=== PATIENT | female | born 1945 | race Caucasian/White ===

== ENCOUNTER → 2016-10-26 | Outpatient (CLI) | payer OTHER ==
[~2016-10-26] VITALS: Ht 172.7 cm; Wt 86.4 kg
[~2016-10-26] MED LIST: ALIGN4 MG PO; CALCIUM 500 +1 EAC5 OR; CENTRUM TABLET1 TAB PO; CYMBALTA60 MG PO; DESYREL150 MG PO; DESYREL50 MG PO; DIOVAN320 MG PO; EFFEXOR37.5 MG OR; EXCEDRIN CAPLE1 EACH PO; EXFORGE PO; FISHOIL PO; HYDROCHLOROTH12.5 MG PO; HYDROCODON-ACE1 EAC5 PO; HYSINGLA ER30 MG PO; LIPITOR10 MG PO; LYRICA 50 MG50 MG PO; NEURONTIN 300300 M1 PO; OMEPRAZOLE20 M1 PO; OPANA ER7.5 M1 PO; PROLIA60 MG/1 ML SQ; ULTRAM ER200 MG OR; VITAMIN D 5050000 I1 OR; VITAMIN D1000 UNI1 PO; ZEGERID 20 MG1 EACH OR
--- NOTE | ~2016-10-26 | HPC ---
[facility] [place] [address] PAIN MANAGEMENT CONSULTATION Name: MAHAMED PALOMARES Room #: REG [facility] Elliott.#: [id number] Admission: 10/26/16 Attend Phys: Luis Mckeon MD Discharge: Date of : 49 Report #: [id number] THIS REPORT FOR: //name// CC: Araceli Cash MD DATE OF SERVICE: 10/26/2016 DATE OF REGISTRATION: 10/26/2016. Followup visit for chronic low back pain, post-laminectomy syndrome, and severe osteoarthritis of the left hip following hip fracture. The patient returns to the pain clinic today to discuss her plans to have her left hip replaced over the next 2 weeks. She has developed severe osteoarthritis in the hip that was injured by fall. She had hip pinning for fracture a few years back and has really had progressive pain in the hips to the point now where pain in the hip outweighs by far the pain of her sciatica. I provided her with medication under terms of an opioid agreement. She is grateful for the relief that she gets from the hydrocodone. We discussed at length today the use of opioids in the perioperative period. She will try and reduce some ____ over the next week or two, which might provide her with some reduced tolerance and improved response to medications immediately postoperative. She may need a higher dose of pain medication than normal in the immediate perioperative period as well as in the first week or so, but then I think we ought to be able to taper it back down. PHYSICAL EXAMINATION: GENERAL: She is pleasant, alert and oriented. VITAL SIGNS: Blood pressure 148/88, heart rate 75. BMI is 29.0. MUSCULOSKELETAL: She has pain in her left hip and localized tenderness. She walks with antalgic features. On internal and external rotation, pain is noted. Examination of the x-rays showed that there are degenerative changes particularly narrowing at the upper, anterior and posterior aspect of the acetabulum. IMPRESSION: 1. Chronic low back pain with radiculopathy. 2. Severe osteoarthritis of the left hip with anticipated left hip replacement. 3. Management of high risk medication. I renewed her medication for her under terms of our opioid agreement. She was [address] [address] PAIN MANAGEMENT CONSULTATION Name: MAHAMED PALOMARES Room #: REG [facility].#: [id number] Admission: 10/26/16 Attend Phys: Luis Mckeon MD Discharge: Date of : 47 Report #: [id number] given [place] #120 tablets q.6h. and Lyrica 50 mg t.i.d. FOLLOWUP VISIT: Planned as needed. By: [id number] Luis Mckeon MD /nt
[2016-10-26 14:34] VITALS: BP 148/88
== END | disposition home or self-care (01) ==
LOC: PAIN 07:01
DX: M54.16 Radiculopathy, lumbar region (principal); M16.12 Unilateral primary osteoarthritis, left hip; G89.29 Other chronic pain; F11.20 Opioid dependence, uncomplicated; M96.1 Postlaminectomy syndrome, not elsewhere classified; Z87.891 Personal history of nicotine dependence; Z87.81 Personal history of (healed) traumatic fracture

== ENCOUNTER → 2017-04-20 | Outpatient (CLI) | payer OTHER ==
[~2017-04-20] VITALS: Ht 172.7 cm; Wt 78.0 kg
[~2017-04-20] MED LIST changes: +GABAPENTIN100 MG PO; +PROTONIX 20 MG20 M1 PO
--- NOTE | ~2017-04-20 | HPC ---
[facility] [address] [place] [address] PAIN MANAGEMENT CONSULTATION Name: MAHAMED PALOMARES Room #: REG [facility] Elliott.#: [id number] Admission: 04/20/17 Attend Phys: Luis Mckeon MD Discharge: Date of : 47 Report #: [id number] THIS REPORT FOR: //name// CC: BUNNY Mckeon DATE OF SERVICE: 04/20/2017 Followup visit for chronic low back pain with radiculopathy and medication management. My friend, the patient, is in the clinic today to discuss her chronic pain. I last saw her in October. I provided with small amounts of opioid medication and gabapentin and with this medicine she has done extremely well managing her low back pain at the level of roughly 2. She has come to understand her pain and works to try and minimize it with activities and medicine and other diversions. She scores her pain at the moment as 2, but in the morning she is really quite uncomfortable and she has trouble getting up and down from a chair. She describes her pain as mostly low back. She was previously experiencing a fair amount of hip pain, but had a wonderful hip replacement surgery that has dramatically reduced her pain. She talks in glowing terms of her orthopedic surgeon, Dr. Tayo Cash and is grateful for his excellent work. She has minimal pain currently in her left hip. She follows with Dr. Bunny Mendez for other condition. She had atrial fib and was treated with cardiac ablation and has done well. She has hypertension and takes a bit of medication occasionally for anxiety. Otherwise, her health has been good And her function has been good as well. PHYSICAL EXAMINATION: Blood pressure is 101/66, heart rate 74. BMI is 26.2. She is a alan 71-year-old pleasant, alert and oriented, without any signs of anxiety or depression today in the clinic. She moves today from a sitting to standing position without difficulty. There is a mild antalgic feature to her gait. She has some pain across her low back with forward flexion and extension. She still complains at times of leg pain, but this is not daily or consistent. IMPRESSION: 1. Chronic intractable low back pain with radiculopathy. 2. Osteoarthritis, status post left hip replacement with wonderful outcome. 3. Management of high risk medication. PLAN: 1. I will continue her on hydrocodone 10/325 one tablet t.i.d. We had a pretty lengthy discussion today about the opioid crisis in the [place], proper use of opioids, we talked about the CDC guideline which we follow closely in our [address] [address] PAIN MANAGEMENT CONSULTATION Name: MARIELLEMAHAMED L Room #: REG [facility] Greene#: [id number] Admission: 04/20/17 Attend Phys: Luis Mckeon MD Discharge: Date of : 47 Report #: [id number] clinic. I think she is comfortable using this medication and I think it is appropriate. 2. She has been on Lyrica for a long time and today we decided to transition her to gabapentin. She has been at 150 mg of Lyrica that should fairly well correlate with about 300 mg of gabapentin. We discussed small differences between these drugs and how they might work. It will be a simple trial and she will see if it provides more relief for the neuropathic component. I have used Gralise for some patients which is once a day gabapentin formulation, but is pretty expensive, particularly for Medicare patients who do not get a break. We will see how she does with gabapentin, follow up at her next visit to determine whether that might be an option. She does not need an injection at this time. It is good to see her. I will see her back in 3-4 months. She will follow with Dr. Mendez. By: [id number] Luis Mckeon MD /nt
[2017-04-20 09:31] VITALS: BP 101/66
== END ==
LOC: PAIN 06:53
DX: M16.12 Unilateral primary osteoarthritis, left hip (principal); M54.10 Radiculopathy, site unspecified; Z96.642 Presence of left artificial hip joint

== ENCOUNTER → 2017-08-14 | Outpatient (CLI) | payer OTHER ==
[~2017-08-14] VITALS: Ht 172.7 cm; Wt 73.5 kg
[~2017-08-14] MED LIST changes: -DESYREL150 MG PO; +TRAZODONE HCL50 MG PO
--- NOTE | ~2017-08-14 | CRIT ---
[facility] [place] [address] CRITICAL CARE NOTE Name: MAHAMED PALOMARES Room #: REG [facility].#: [id number] Admission: 08/14/17 Attend Phys: Luis Mckeon MD Discharge: Date of : 47 Report #: [id number] THIS REPORT FOR: //name// CC: Araceli Mckeon DATE OF SERVICE: 08/14/2017 Followup visit for chronic low back pain with radiculopathy. This is a followup visit for the patient who is here today for medication. No changes will be made in her current use of hydrocodone, which is very modest. She uses 3 hydrocodone tablets daily, roughly on a schedule to help control her chronic back pain with radiculopathy. We did discuss exercise a bit today and I have encouraged her to begin a habitual walking program, focusing on somewhere between 406,000 steps a day as an initial walk. This will provide multiple benefits including further spinal stability, better blood flow and should also help with her pain. She was open to this suggestion. She has had a recent cardiac ablation and has done well with her atrial fib well controlled. PQRS review is completed. She has a history of osteoarthritis involving her hips and rheumatoid arthritis. BMI is 24.6. VITAL SIGNS: Blood pressure 121/69 and her heart rate is 66. O2 sat 99. Pain intensity is 3-4/10 and she is not a fall risk. She is not on a blood thinner at this time. She believes that spinal cord stimulator placed in 2010 might be helping some. She is a low risk for addiction on her opioids. We have had multiple discussions about use versus misuse and her functional interference score is low. She does not smoke nor does she drink alcohol with frequency. IMPRESSION: 1. Chronic low back pain, post-laminectomy syndrome with radiculopathy. 2. Osteoarthritis, status post left hip replacement. She is doing very well. 3. Management of high-risk medication. PLAN: She will continue on her hydrocodone as described and begin a walking program. I will see her back in 3 months. The patient is delightful, [facility] [address] [place] [address] CRITICAL CARE NOTE Name: MAHAMED PALOMARES Joan Room #: REG [facility] Elliott.#: [id number] Admission: 08/14/17 Attend Phys: Luis Mckeon MD Discharge: Date of : 47 Report #: [id number] understands the issues associated with opioids and will be cautious with her ongoing use. <ELECTRONICALLY SIGNED> By: Luis Mckeon MD 09/06/17 1640 17 [id number] Luis Mckeon MD /nt
[2017-08-14 12:44] VITALS: BP 121/69
== END ==
LOC: PAIN 07:05
DX: M54.16 Radiculopathy, lumbar region (principal); M96.1 Postlaminectomy syndrome, not elsewhere classified; M16.12 Unilateral primary osteoarthritis, left hip; Z79.899 Other long term (current) drug therapy

== ENCOUNTER → 2018-01-11 | Outpatient (CLI) | payer OTHER ==
[~2018-01-11] VITALS: Ht 172.7 cm; Wt 74.9 kg
--- NOTE | ~2018-01-11 | HPC ---
[facility] [place] [address] PAIN MANAGEMENT CONSULTATION Name: MAHAMED PALOMARES Room #: REG [facility].#: [id number] Admission: 01/11/18 Attend Phys: Luis Mckeon MD Discharge: Date of : 49 Report #: [id number] THIS REPORT FOR: //name// CC: Araceli Mckeon DATE OF SERVICE: 01/11/2018 Followup visit for chronic low back pain with radiculopathy and osteoarthritis. The patient returns to Pain Clinic today for renewal of pain medication. She has been on an opioid agreement with our clinic and receives excellent relief from the use of [place] 10/325 up to 3 times a day. She has no significant side effects. She manages her medication successfully with no early prescriptions. No evidence of misuse or abuse. She is grateful for the pain relief that she gets. Her functioning level has dramatically improved and she has minimal side effect. She safeguards her medications carefully per terms of our opioid agreement. Review of her record as far back as I can find shows that she was taking hydrocodone for chronic pain as far back as 2006. So, she has successful use of medication and treatment of chronic pain at the current dose without escalation for 11 years. We have tried additional treatments including spinal cord stimulation with limited response. Epidural steroid injections do not provide much relief. Plan is to continue medication as provided. PHYSICAL EXAMINATION: She is a delightful 72-year-old, pleasant, alert and oriented. Blood pressure is 138/76, heart rate 65, respirations 16. BMI is 25.1. She is not a fall risk. She is on a blood thinner. She is treated for hypertension. She is on an opioid agreement as described. She is at low risk for addiction. Her use of medication is appropriate. PLAN: I have renewed her medications under terms of our written agreement for chronic pain. I plan to see her back in the Pain Clinic at 3-month intervals. I think this is quite a reasonable and safe way to manage her chronic pain and we will continue to do so unless we are interfered with by outside sources. By: [id number] Luis Mckeon MD /nt
[2018-01-11 10:48] VITALS: BP 138/76
== END ==
LOC: PAIN 07:06
DX: M47.27 Other spondylosis with radiculopathy, lumbosacral region (principal); M54.5 Low back pain; G89.29 Other chronic pain; I10 Essential (primary) hypertension; Z79.891 Long term (current) use of opiate analgesic

== ENCOUNTER → 2018-05-17 | Outpatient (CLI) | payer OTHER ==
[~2018-05-17] VITALS: Ht 172.7 cm; Wt 77.9 kg
--- NOTE | ~2018-05-17 | HPC ---
[facility] [address] [place] [address] PAIN MANAGEMENT CONSULTATION Name: MAHAMED PALOMARES Room #: REG [facility] Greene#: [id number] Admission: 05/17/18 Attend Phys: Luis Mckeon MD Discharge: Date of : 47 Report #: [id number] THIS REPORT FOR: //name// CC: Araceli Mckeon DATE OF SERVICE: 05/17/2018 Followup visit for chronic pain, post-laminectomy syndrome. The patient returns to the pain clinic today for renewal of pain medication provided under terms of our written agreement. She takes hydrocodone 10/325, no more than 3 tablets a day. Her maximum MME is 30. She reports that the medication provides quite satisfactory relief. She is able to function at a much higher level. She just described an excellent trip back to [place] to see grandchildren. Her son and her [id number] are both physicians living [place] on [place] [facility] [email or web address] side of [place]. She is always excited to go back and see her grandchildren. The pain medication allows her to do much more on these trips and she has no significant side effects from the medication. She carefully safeguards her medication under terms of our agreement. Medications have been provided for her effectively dating back nearly 10 years or longer. She also uses gabapentin 300 mg 3 times daily and this is helpful for the neuropathic pain. She has had spinal cord stimulation trial with limited response and epidural injections no longer provide much relief. We will continue medication under terms of this agreement. PQRS review shows that she has some mild osteoarthritis in the hips bilaterally. Her BMI is 26. Her blood pressure 138/76 and heart rate 71. Pain intensity is 3. She is not a fall risk. She is on no blood thinners. She is treated currently by Dr. Mendez for hypertension successfully. She is on an opioid agreement, last signed in 05/2016. She has completed an assessment tool for risks and is at low risk for any addiction or misuse of her medication. She does not smoke. She drinks alcohol modestly in a social setting. IMPRESSION: 1. Chronic lower back pain with radiculopathy. 2. Osteoarthritis. 3. Spondylolisthesis. 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 PLAN: I have renewed her hydrocodone at 90 tablets of hydrocodone and I have released a prescription for 4 and 8 weeks. I will see her back in the pain [address] [address] PAIN MANAGEMENT CONSULTATION Name: MAHAMED PALOMARES Joan Room #: REG [facility] Ramona#: [id number] Admission: 05/17/18 Attend Phys: Luis Mckeon MD Discharge: Date of : 47 Report #: [id number] clinic as necessary for renewal. She can get these medications from Dr. Mendez if he is willing to provide them for her. By: [id number] Luis Mckeon MD /mitchell
[2018-05-17 10:35] VITALS: BP 138/76
== END ==
LOC: PAIN 06:18
DX: G89.29 Other chronic pain (principal); M54.16 Radiculopathy, lumbar region; M19.90 Unspecified osteoarthritis, unspecified site; M43.16 Spondylolisthesis, lumbar region

== ENCOUNTER → 2018-08-23 | Outpatient (CLI) | payer OTHER, BC ==
[~2018-08-23] VITALS: Ht 172.7 cm; Wt 77.7 kg
[2018-08-23 09:31] VITALS: BP 134/78
--- NOTE | 2018-08-23 09:44 | NUR ---
Pain Clinic Assessment: 1. History of Osteoarthritis: HIPS History of Rheumatoid Arthritis: Not Applicable 2. Height: 5 ft. 8 in. 172.7 cm. Weight: 171.2 lb. oz. 77.656 kg. Patient's BMI: 26.0 3. Vital Signs: BP: 134/78 Pulse: 66 Resp: 16 Temp: 02 Sat: 96 ECG Mon: 4. Pain Intensity: 4 5. Fall Risk: Dizziness: N Needs help standing or walking: N Fallen in the last 3 months: N Fall risk comments: 6. Patient on Blood Thinner: None 7. History of Hypertension: Y 8. Opioid Therapy greater than 6 weeks: Y Opiate Contract Signed: 05/23/16 9. Risk Assessment Tool Provided: low risk 10. Functional Assessment Tool: 11. Recreational Drug Use: Never Drug Type: Tobacco Use: Former Smoker Tobacco Type: Amount or Packs/day: How Many Years: Alcohol Use: Yes Frequency: Quant:
--- NOTE | 2018-08-24 07:54 | HPC ---
[facility] [address] [place] [address] PAIN MANAGEMENT CONSULTATION Name: MAHAMED PALOMARES [facility] [id number] Admission: 08/23/18 Attend Phys: Amber Wilson Discharge: Date of : 47 Report #: [id number] THIS REPORT FOR: //name// CC: Amber Mendez DATE OF SERVICE: 08/23/2018 CHIEF COMPLAINT: Chronic pain, post-laminectomy syndrome. HISTORY OF PRESENT ILLNESS: This is a very pleasant 72-year-old female who returns to the pain clinic today for followup for her medication management, for her ongoing mid and low back pain. She has had a fusion in the past as well as spinal cord stimulator that has been since removed. She states her pain score today is 4/10. She is more uncomfortable in the morning and with activity, sitting and lying down plus her medications are very helpful. She tells me she has been occasionally on some days taking 2 tablets of hydrocodone a day, other days she requires 3. She would like to get off this medicine. The patient voices, but she tells me that she just feels that she is not able to do her activity and cleaning around the house if she does not have her medication. She has tried to go without and was not successful. The patient denies any constipation. She tells me that she uses day to a day and is very helpful for controlling her constipation. She is going on vacation on Monday and wondering if she was able to fill her medications a couple of days early due to going out of town. ALLERGIES: No known drug allergies. MEDICATIONS: Hydrocodone 10/325 up to 3 times a day as needed, gabapentin 300 mg 3 times a day, Protonix 20 mg daily, Prolia 60 mg monthly, Diovan 320 mg daily, Lipitor 10 mg daily, Cymbalta 60 mg daily, vitamin D3 daily, Desyrel 50 mg at bedtime, fish oil daily, Os-Aris 500 b.i.d., Excedrin daily, hydrochlorothiazide 12.5 daily. PQRS: 1. She has some mild arthritis in her hips bilaterally. Denies any rheumatoid arthritis. 2. Height is 5 feet 8 inches, weight is 171. BMI is 26. 3. Vital signs: Blood pressure 134/78, pulse is 66, respirations 16, oxygen sat is 96. 4. Pain score is 4/10. 5. Denies dizziness, does not need help walking or standing, has not fallen in the last 3 months. 6. Denies any blood thinners. She does take medicine for hypertension. 7. Opioid therapy is greater than 6 weeks, therefore, an opioid signed contract is on the chart. [address] [address] PAIN MANAGEMENT CONSULTATION Name: BRITTNYAmanMAHAMED L Room #: REG [facility] Greene#: [id number] Admission: 08/23/18 Attend Phys: Amber Wilson Discharge: Date of : 47 Report #: [id number] 8. Her risk assessment tool is low. Her functional assessment is 13. 9. Recreational drug use, she denies. She is a former smoker and occasionally drinks alcohol. We did check the prescription monitoring system. The patient is filling appropriately from Dr. Luis Mckeon for her opioid medications. There is not a urine drug screen on the chart and the patient will give us buccal sample today. PHYSICAL EXAMINATION: GENERAL: This is a well-developed, well-nourished 72-year-old female who appears her stated age. She is alert and orientated and her affect is appropriate. HEENT: Normocephalic, atraumatic. Extraocular eye muscles are intact. Mucous membranes are moist. Her hearing is within normal limits. NECK: Without JVD or adenopathy. MUSCULOSKELETAL: Upper and lower extremity strength judged to be 5/5 in all major muscle groups. The patient does complain of low back pain. Her gait is normal without difficulties. IMPRESSION: 1. Chronic low back pain with radiculopathy. 2. Osteoarthritis. 3. Spondylolisthesis. 4. Failed spinal cord stimulator therapy. We reviewed the fact that opiate medications are being used to provide analgesia adequate to support activities of daily living, not attempting to achieve a specific pain score on the 0-10 Visual Analog Scale. The current opiate medications are providing sufficient analgesia to allow the patient to participate in activities of daily living. The patient is not exhibiting any aberrant behavior suggestive of drug diversion. The patient is not having any adverse reactions to medications. The patient is not suffering from daytime somnolence or mental acuity changes. The patient is managing opiate-induced constipation with appropriate rbus-czz-hxsttzw agents and dietary considerations. The patient was counseled on concern for caution with operating a motor vehicle while using opiate medications. A physical exam was performed and the patient's functional status was evaluated. All patients with back pain were advised against the bed rest greater than 4 days and were advised to return to normal activities. Pain score assessment was noted and the treatment plan was reviewed with the patient. All current medications, both prescribed and OTC were reviewed and reconciled on the electronic medical record. Tobacco screening was accomplished and smoking cessation was advised when indicated. BMI was noted and diet/exercise modification was recommended for all patients following outside normal parameters. [address] [address] PAIN MANAGEMENT CONSULTATION Name: MAHAMED PALOMARES Room #: REG [facility]#: [id number] Admission: 08/23/18 Attend Phys: Amber Wilson Discharge: Date of : 47 Report #: [id number] I reviewed with the patient today their responsibilities to safeguard prescription medications, reviewed their responsibility to utilize medications only as prescribed by the physician. They are to seek and receive pain medications only from 1 physician group ( [facility]). They are to use 1 pharmacy and keep the clinic informed if they change pharmacies. Their responsibilities include making followup visits in a timely fashion and to avoid abrupt discontinuation of medication usage. Their responsibilities further include bringing their medications (bottles from the pharmacy with residual pills) to the visit for possible confirmation of pill counts and the patient understands it is their responsibility to submit to random drug screens to ensure both that the medications prescribed are present, and that no other controlled substances are present. All prescriptions provided today were generated electronically. PLAN: 1. We discussed treatment options with the patient today. The patient is taking hydrocodone 10/325 2-3 times a day. We will renew that medication for #90 for today, for an 8-week. We will release her first script to be filled today since she is going on vacation. This is only about 3 days early per the patient's last fill. 2. We did discuss patient is wanting to decrease her medications. Tells me that sometimes she tries to take 2 or less a day and tells that she does need this medicine and helps her function. I told her according to the [facility] guidelines, she is on a low dose of medications. It is 30 MME per day, way under the CDC guidelines of 50 or below, that if she was wanting to, one option could be take half of a pill, on some days to take only 2.5 or 1.5 if she wants or we could decrease the strength from 10 to 7.5. She can still take three a day if she needs to but for now, we will continue on her three tablets a day. The patient states that she will think about that and revisit it in future appointments. 3. Gabapentin was also refilled today. The patient finds this very helpful in controlling her neuropathic pain in her legs. 4. The patient is going on a vacation on Monday. We discussed safeguarding her medications, keeping them locked up when she is on vacation in the safe and only taking what she will need for the duration of the trip. 5. The patient is seen by Dr. Mckeon briefly today and seen in collaboration with Dr. Luis Mckeon. <ELECTRONICALLY SIGNED> By: Amber Wilson 08/24/18 [id number] Amber Wilson /mitchell
== END ==
LOC: PAIN 06:58
DX: M43.16 Spondylolisthesis, lumbar region (principal); G89.29 Other chronic pain; M54.16 Radiculopathy, lumbar region; M19.90 Unspecified osteoarthritis, unspecified site; T85.192D Other mechanical complication of implanted electronic neurostimulator of spinal cord electrode (lead), subsequent encounter

== ENCOUNTER → 2018-12-10 | Outpatient (CLI) | payer OTHER, BC ==
[~2018-12-10] VITALS: Ht 172.7 cm; Wt 77.6 kg
[2018-12-10 10:54] VITALS: BP 126/63
--- NOTE | 2018-12-11 09:04 | HPC ---
[facility] [address] [place] [address] PAIN MANAGEMENT CONSULTATION Name: MAHAMED PALOMARES Room #: [facility]#: [id number] Admission: 12/10/18 ������������������ Attend Phys: Amber Wilson Discharge: ������������������ Date of : 49 Report #: [id number] THIS REPORT FOR: //name// CC: Amber Mendez DATE OF SERVICE: 12/10/2018 CHIEF COMPLAINT: Chronic pain, post-laminectomy syndrome. HISTORY OF PRESENT ILLNESS: This is a very pleasant 73-year-old female who returns to the pain clinic today for refill of her medications. She tells me that her pain is mostly located in her mid and low back. She rates her pain score 4/10 today, though she has not had any medications yet today. It is a constant achy pain that is worse in the morning upon getting out of bed or with activity. She tells me that sitting and lying down and her medications are very helpful. Denies any problems with constipation or daytime sleepiness. She tells me that she is doing quite well on her current medication regimen. ALLERGIES: No known drug allergies. CURRENT MEDICATIONS: Hydrocodone 10/325 t.i.d., gabapentin 300 mg t.i.d., Protonix 20 mg daily, Prolia 60 mg monthly, valsartan 320 mg daily, Lipitor 10 mg daily, duloxetine 60 mg daily, vitamin D, fish oil, Os-Aris, Excedrin, Desyrel 50 mg at bedtime and Hydrochlorothiazide 12.5 mg daily. PQRS: 1. The patient has some mild arthritic changes in her hips bilaterally. Denies any rheumatoid arthritis. 2. Height is 5 feet 8 inches, weight is 171. BMI is 26. VITAL SIGNS: Blood pressure 126/63, pulse is 50, respirations 16, pulse ox is 98%. 3. Pain score is 4/10. 4. Denies dizziness. Does not need help with walking or standing and has not fallen in the last 3 months. 5. The patient is not on any blood thinners, does take medicine for hypertension. 6. Opioid therapy is greater than 6 weeks; therefore, an opioid signed contract is on the chart. 7. Risk assessment tool is low and her functional assessment is low as well. Recreational drug use, she is a former smoker and does not drink alcohol. PHYSICAL EXAMINATION: GENERAL: This is a well-developed, well-nourished 73-year-old female who appears her stated age, placing her current pain score at 4/10. She is alert and orientated [place] [address] PAIN MANAGEMENT CONSULTATION Name: MAHAMED PALOMARES Room #: [facility]#: [id number] Admission: 12/10/18 ������������������ Attend Phys: Amber Wilson Discharge: ������������������ Date of : 49 Report #: [id number] HEENT: Normocephalic, atraumatic. Extraocular eye muscles are intact. Mucous membranes are moist. Her hearing is within normal limits. MUSCULOSKELETAL: Upper and lower extremity strength judged to be 5/5 in all major muscle groups. Tenderness across the lumbar region that does not radiate down her legs. Her gait is normal. IMPRESSION: 1. Chronic low back pain with radiculopathy. 2. Osteoarthritis. 3. Spondylolisthesis. 4. Failed spinal cord stimulator therapy. 5. Opioid medication under terms of written agreement. We reviewed the fact that opiate medications are being used to provide analgesia adequate to support activities of daily living, not attempting to achieve a specific pain score on the 0-10 Visual Analog Scale. The current opiate medications are providing sufficient analgesia to allow the patient to participate in activities of daily living. The patient is not exhibiting any aberrant behavior suggestive of drug diversion. The patient is not having any adverse reactions to medications. The patient is not suffering from daytime somnolence or mental acuity changes. The patient is managing opiate-induced constipation with appropriate lphs-kku-ggmtksk agents and dietary considerations. The patient was counseled on concern for caution with operating a motor vehicle while using opiate medications. A physical exam was performed and the patient's functional status was evaluated. All patients with back pain were advised against the bed rest greater than 4 days and were advised to return to normal activities. Pain score assessment was noted and the treatment plan was reviewed with the patient. All current medications, both prescribed and OTC were reviewed and reconciled on the electronic medical record. Tobacco screening was accomplished and smoking cessation was advised when indicated. BMI was noted and diet/exercise modification was recommended for all patients following outside normal parameters. I reviewed with the patient today their responsibilities to safeguard prescription medications, reviewed their responsibility to utilize medications only as prescribed by the physician. They are to seek and receive pain medications only from 1 physician group ( [facility]). They are to use 1 pharmacy and keep the clinic informed if they change pharmacies. Their responsibilities include making followup visits in a timely fashion and to avoid abrupt discontinuation of medication usage. Their responsibilities further include bringing their medications (bottles from the pharmacy with residual pills) to the visit for possible confirmation of pill counts and the patient understands it is their responsibility to submit to random drug screens to ensure both that the medications prescribed are present, and that no other [facility] [address] [place] [address] PAIN MANAGEMENT CONSULTATION Name: MAHAMED PALOMARES Room #: [facility]#: [id number] Admission: 12/10/18 ������������������ Attend Phys: Amber Wilson Discharge: ������������������ Date of : 49 Report #: [id number] controlled substances are present. All prescriptions provided today were generated electronically. PLAN: 1. We discussed treatment options with the patient today. The patient tells me that she is doing quite well on her current medication regimen. Scripts given for hydrocodone 10/325, #90 for today, 4-week and 8-week release. This places the patient at 30 morphine milliequivalent, well below the CDC guidelines. 2. Script given for gabapentin 300 mg #90 with 2 additional refills. We discussed possibly titrating this down. The patient was wondering how her pain would be if she did not take that medication. I explained to her that she could drop the middle dose of the day for about a week and see how her pain is; if no changes, then I encouraged her to drop the morning dose; if no change in her pain, then to drop the evening dose, then at whatever dose her pain returns or gets worse, I would stay at that dose, whether it be 3 times a day or b.i.d. or daily. The patient verbalizes understanding and we will see if she is able to decrease her medications slightly 3. Dr. Luis Mckeon did come in and see the patient in collaborative care. The patient will return in 3-month time period for an appointment. ��������������������������������������������� <ELECTRONICALLY SIGNED> ���������������������������������������� By: Amber Wilson ��������������������������������������������� 12/11/18 0904 1411 0438 Amber lemons
== END ==
LOC: PAIN 06:44
DX: M54.16 Radiculopathy, lumbar region (principal); M96.1 Postlaminectomy syndrome, not elsewhere classified; G89.29 Other chronic pain; M19.90 Unspecified osteoarthritis, unspecified site; M43.16 Spondylolisthesis, lumbar region; Z79.891 Long term (current) use of opiate analgesic

== ENCOUNTER → 2019-04-01 | Outpatient (CLI) | payer OTHER, BC ==
[~2019-04-01] VITALS: Ht 172.7 cm; Wt 77.1 kg
[~2019-04-01] MED LIST changes: +SYNTHROID50 MCG PO; +VENTOLIN HFA 1818 GM INH; +XANAX 0.5 MG0.5 MG PO
[2019-04-01 09:42] VITALS: BP 134/74
--- NOTE | 2019-04-01 09:48 | NUR ---
Pain Clinic Assessment: 1. History of Osteoarthritis: HIPS History of Rheumatoid Arthritis: Not Applicable 2. Height: 5 ft. 8 in. 172.7 cm. Weight: 170.0 lb. oz. 77.112 kg. Patient's BMI: 25.9 3. Vital Signs: BP: 134/74 Pulse: 59 Resp: 16 Temp: 02 Sat: 96 ECG Mon: 4. Pain Intensity: 3 5. Fall Risk: Dizziness: N Needs help standing or walking: N Fallen in the last 3 months: N Fall risk comments: 6. Patient on Blood Thinner: None 7. History of Hypertension: Y 8. Opioid Therapy greater than 6 weeks: Y Opiate Contract Signed: 05/23/16 9. Risk Assessment Tool Provided: low risk - 0 10. Functional Assessment Tool: /70 11. Recreational Drug Use: Never Drug Type: Tobacco Use: Former Smoker Tobacco Type: Amount or Packs/day: How Many Years: Alcohol Use: Yes Frequency: Special Occasions Quant: 1
--- NOTE | 2019-04-02 13:00 | HPC ---
[facility] [address] [place] [address] PAIN MANAGEMENT CONSULTATION Name: MAHAMED PALOMARES Room #: [facility]#: [id number] Admission: 04/01/19 Attend Phys: Amber Wilson Discharge: Date of : 49 Report #: [id number] THIS REPORT FOR: //name// CC: Amber Mendez DATE OF SERVICE: 04/01/2019 CHIEF COMPLAINT: Chronic pain, post-laminectomy syndrome. HISTORY OF PRESENT ILLNESS: This is a very pleasant 73-year-old female who returns to the pain clinic today for refill of her medications. She reports a pain score of 3/10 today. The majority of her pain is in her lower back, but occasionally she feels it is in her mid back as well. It is a constant, aching pain that is worse in the morning and better with her medications or changing recliner, which she does quite frequently when she is working at home. The patient tells me that she does not have problems with constipation. If she feels that she is becoming constipated, she increases her fiber intake. She tells me overall the medications of hydrocodone is very beneficial in controlling most of her pain and keep her as active as she needs to be. She would like refills of this medication today. ALLERGIES: No known drug allergies. CURRENT LIST OF MEDICATIONS: Synthroid 50 mcg daily, albuterol inhaler, Xanax 0.5 daily, gabapentin 300 mg 3 times a day, hydrocodone 10/325 three times a day p.r.n., Protonix 20 mg daily, Prolia 60 mg monthly, valsartan 320 mg daily, Lipitor 10 mg daily, Cymbalta 60 mg daily, vitamin D, Desyrel 50 mg at bedtime, Os-Aris, hydrochlorothiazide 12.5 mg daily. PQRS: 1. She has mild arthritic changes in her hips bilaterally. Denies any rheumatoid arthritis. 2. Height is 5 feet 8 inches, weight is 170, BMI is 25. 3. Vital signs 134/74, pulse is 59, respirations 16, oxygen sat is 96. 4. Pain score is 3/10. 5. Denies dizziness, does not need help walking or standing, has not fallen in the last 3 months. 6. The patient is not on any blood thinners, but does take medicine for hypertension. 7. Opioid therapy is greater than 6 weeks; therefore, an opioid signed contract is on the chart. Risk assessment tool is low. Functional assessment is . 8. Recreational drug use, she denies. She is a former smoker and occasionally drinks alcohol. We did check the prescription monitoring system. The patient is due to fill her [address] [address] PAIN MANAGEMENT CONSULTATION Name: BRITTNYAmanMAHAMED L Room #: [facility]#: [id number] Admission: 04/01/19 Attend Phys: Amber Wilson Discharge: Date of : 49 Report #: [id number] hydrocodone today. There is a drug screen on the chart as well that is appropriate for her medications. PHYSICAL EXAMINATION: GENERAL: This is a well-developed, well-nourished 73-year-old female who appears her stated age, placing her current pain score at 4/10. She is alert and orientated and her affect is appropriate. HEENT: Normocephalic, atraumatic. Extraocular muscles are intact. Mucous membranes are moist. MUSCULOSKELETAL: Tenderness in her lumbar region that does not have a radicular component. Her gait is normal. She has upper and lower extremity strength judged to be 5/5 in all major muscle groups. IMPRESSION: 1. Chronic low back pain without radiculopathy presently, but has a history of radiculopathy. 2. Osteoarthritis. 3. Spondylolisthesis. 4. Failed spinal cord stimulator therapy. 5. Opioid medications under terms of written opioid agreement. We reviewed the fact that opiate medications are being used to provide analgesia adequate to support activities of daily living, not attempting to achieve a specific pain score on the 0-10 Visual Analog Scale. The current opiate medications are providing sufficient analgesia to allow the patient to participate in activities of daily living. The patient is not exhibiting any aberrant behavior suggestive of drug diversion. The patient is not having any adverse reactions to medications. The patient is not suffering from daytime somnolence or mental acuity changes. The patient is managing opiate-induced constipation with appropriate ugli-iiv-joloiov agents and dietary considerations. The patient was counseled on concern for caution with operating a motor vehicle while using opiate medications. A physical exam was performed and the patient's functional status was evaluated. All patients with back pain were advised against the bed rest greater than 4 days and were advised to return to normal activities. Pain score assessment was noted and the treatment plan was reviewed with the patient. All current medications, both prescribed and OTC were reviewed and reconciled on the electronic medical record. Tobacco screening was accomplished and smoking cessation was advised when indicated. BMI was noted and diet/exercise modification was recommended for all patients following outside normal parameters. I reviewed with the patient today their responsibilities to safeguard prescription medications, reviewed their responsibility to utilize medications only as prescribed by the physician. They are to seek and receive pain [address] [address] PAIN MANAGEMENT CONSULTATION Name: MAHAMED PALOMARES Room #: [facility]#: [id number] Admission: 04/01/19 Attend Phys: Amber Wilson Discharge: Date of : 49 Report #: [id number] medications only from 1 physician group ( [facility]). They are to use 1 pharmacy and keep the clinic informed if they change pharmacies. Their responsibilities include making followup visits in a timely fashion and to avoid abrupt discontinuation of medication usage. Their responsibilities further include bringing their medications (bottles from the pharmacy with residual pills) to the visit for possible confirmation of pill counts and the patient understands it is their responsibility to submit to random drug screens to ensure both that the medications prescribed are present, and that no other controlled substances are present. All prescriptions provided today were generated electronically. PLAN: 1. We discussed treatment options with patient today. She feels that the hydrocodone is very beneficial in helping as keep her function as she would like to be as well as the gabapentin. The patient given scripts for gabapentin 300 mg 3 times a day and with 2 additional refills and hydrocodone 10/325, #90 for today, 4-week and 8-week. 2. We discussed the CDC guidelines, this places the patient at 30 morphine mEq per day, well below their guidelines. The patient tells me that sometimes the pharmacy do give her hard time with her medications. I explained to her that she is on a low dose and it keeps her functioning and we will continue to prescribe this for her. 3. Dr. Luis Mckeon did come and see the patient and collaborated care today. The patient will return in 3 months. <ELECTRONICALLY SIGNED> By: Amber Wilson 04/02/19 1300 1157 2315 Amber Wilson /nt
== END ==
LOC: PAIN 06:48
DX: Z76.0 Encounter for issue of repeat prescription (principal); M54.16 Radiculopathy, lumbar region; M43.16 Spondylolisthesis, lumbar region; M96.1 Postlaminectomy syndrome, not elsewhere classified; G89.29 Other chronic pain; M19.90 Unspecified osteoarthritis, unspecified site; Z79.899 Other long term (current) drug therapy; Z79.891 Long term (current) use of opiate analgesic

== ENCOUNTER → 2019-07-29 | Outpatient (CLI) | payer OTHER, BC ==
[~2019-07-29] VITALS: Ht 172.7 cm; Wt 75.4 kg
[2019-07-29 10:42] VITALS: BP 134/80
--- NOTE | 2019-07-29 10:58 | NUR ---
Pain Clinic Assessment: 1. History of Osteoarthritis: HIPS History of Rheumatoid Arthritis: Not Applicable 2. Height: 5 ft. 8 in. 172.7 cm. Weight: 166.2 lb. oz. 75.388 kg. Patient's BMI: 25.3 3. Vital Signs: BP: 134/80 Pulse: 62 Resp: 16 Temp: 02 Sat: 100 ECG Mon: 4. Pain Intensity: 3-4 5. Fall Risk: Dizziness: N Needs help standing or walking: N Fallen in the last 3 months: N Fall risk comments: 6. Patient on Blood Thinner: None 7. History of Hypertension: Y 8. Opioid Therapy greater than 6 weeks: Y Opiate Contract Signed: 05/23/16 9. Risk Assessment Tool Provided: low risk - 0 10. Functional Assessment Tool: 11. Recreational Drug Use: Never Drug Type: Tobacco Use: Former Smoker Tobacco Type: Cigarettes Amount or Packs/day: 1 PPD How Many Years: 7 Alcohol Use: Yes Frequency: Monthly Quant: 1 GLASS WINE
--- NOTE | 2019-07-30 08:12 | HPC ---
[facility] [place] [address] PAIN MANAGEMENT CONSULTATION Name: MAHAMED PALOMARES [id number] Admission: 07/29/19 Attend Phys: Amber Wilson Discharge: Date of : 49 Report #: [id number] THIS REPORT FOR: //name// CC: Amber Mckeon MD DATE OF SERVICE: 07/29/2019 CHIEF COMPLAINT: Chronic pain, post-laminectomy syndrome. HISTORY OF PRESENT ILLNESS: This is a very pleasant 73-year-old female who returns to the pain clinic today for refills of her medications. Today she is reporting that she has weaned herself off her gabapentin since we last saw her. First she wanted to see if it was beneficial, then she noticed no changes in her pain when she was decreasing her gabapentin. She does report that stopping her last pill, she did notice some increased pain, but has stabilized so as of today, she is no longer on that medication and only requiring hydrocodone 10/325 from us. She is reporting a pain score at 3-4 today. It is located in her lower back, occasionally in her mid back area. It is a constant, aching pain, worse in the mornings. She feels like that taking an Excedrin prior to getting up in the morning is beneficial, and then spacing her hydrocodone throughout the day, sometimes taking a half a pill. Other times requiring an entire pill to help her with her day. She feels that walking and also sitting in her recliner are beneficial in controlling her pain. She denies any problems with constipation or daytime sleepiness as a result of her hydrocodone use. ALLERGIES: No known drug allergies. CURRENT LIST OF MEDICATIONS: Hydrocodone 10/325 up to 3 tablets a day, Synthroid, Ventolin, alprazolam, Protonix, Prolia, Diovan, Lipitor, Cymbalta, vitamin D, Desyrel, Os-Aris, Excedrin and hydrochlorothiazide. PQRS: 1. She has osteoarthritis in her hips bilaterally. Denies any rheumatoid arthritis. 2. Height is 5 feet 8 inches, weight is 166, BMI is 25. 3. Vital signs 134/80, pulse is 62, respirations 16, oxygen sat is 100. 4. Pain score is 3-4. 5. Denies dizziness, does not need help walking or standing, has not fallen in the last 3 months. The patient is not on any blood thinners, but does take medicine for hypertension. Opioid therapy is greater than 6 weeks; therefore, an opioid signed contract is on the chart. Risk assessment tool is low. Functional assessment is . 6. Recreational drug use, she denies. She is a former smoker and occasionally [facility] [address] [place] [address] PAIN MANAGEMENT CONSULTATION Name: MAHAMED PALOMARES Room #: [facility]#: [id number] Admission: 07/29/19 Attend Phys: Amber Wilson Discharge: Date of : 49 Report #: [id number] has a drink of wine nightly. According to the prescription monitoring system, the patient is filling appropriately for her medications filling them in a timely fashion. Her morphine mEq is 30 MME per day. PHYSICAL EXAMINATION: GENERAL: This is alert and orientated 73-year-old female who appears her stated age, placing her current pain score at 3-4. She is alert and orientated. HEENT: Normocephalic, atraumatic. Extraocular eye muscles are intact. She is wearing glasses today. MUSCULOSKELETAL: She has tenderness in her thoracic and lumbar region. It does not have a radicular component. Her upper and lower extremity strength judged to be 5/5 in all major muscle groups. She has a normal gait. Able to move from sitting to standing without difficulty. IMPRESSION: 1. Chronic low back pain without radiculopathy. 2. Osteoarthritis. 3. Spondylolisthesis. 4. Failed spinal cord stimulator therapy. 5. Post-laminectomy syndrome. 6. Opioid medications, requiring written opioid agreement. We reviewed the fact that opiate medications are being used to provide analgesia adequate to support activities of daily living, not attempting to achieve a specific pain score on the 0-10 Visual Analog Scale. The current opiate medications are providing sufficient analgesia to allow the patient to participate in activities of daily living. The patient is not exhibiting any aberrant behavior suggestive of drug diversion. The patient is not having any adverse reactions to medications. The patient is not suffering from daytime somnolence or mental acuity changes. The patient is managing opiate-induced constipation with appropriate bpax-xcl-cjtiqqr agents and dietary considerations. The patient was counseled on concern for caution with operating a motor vehicle while using opiate medications. PLAN: 1. We discussed treatment options with the patient today. The patient has weaned herself off successfully of gabapentin with no side effects. She has not noticed any increase in her pain. We will have the patient remain off this. She does not have any radicular symptoms currently. 2. We will refill her hydrocodone 10/325, #90, for today 4 week,8 weeks. These will be sent electronically by Dr. Luis Mckeon. According to [address] [address] PAIN MANAGEMENT CONSULTATION Name: MAHAMED PALOMARES Room #: [facility]#: [id number] Admission: 07/29/19 Attend Phys: Amber Wilson Discharge: Date of : 49 Report #: [id number] the CDC guidelines, this places her at 30 morphine mEq a day. 3. The patient is seen in collaboration with Dr. Luis Mckeon. <ELECTRONICALLY SIGNED> By: Amber Wilson 07/30/19811 1342 57 Amber Wilson /nt
== END ==
LOC: PAIN 06:58
DX: M43.16 Spondylolisthesis, lumbar region (principal); M96.1 Postlaminectomy syndrome, not elsewhere classified; G89.29 Other chronic pain; Z79.899 Other long term (current) drug therapy; Z79.891 Long term (current) use of opiate analgesic

== ENCOUNTER → 2019-12-05 | Outpatient (CLI) | payer OTHER, BC ==
[~2019-12-05] VITALS: Ht 172.7 cm; Wt 76.7 kg
--- NOTE | ~2019-12-05 | HPC ---
[facility] [address] [place] [address] PAIN MANAGEMENT CONSULTATION Name: MAHAMED PALOMARES Room #: REG Allen Gallagher.#: [id number] Admission: 12/05/19 Attend Phys: Luis Mckeon MD Discharge: Date of : 49 Report #: [id number] THIS REPORT FOR: cc: Araceli Mendez MD,Araceli Mckeon,Luis White MD ~ CC: Araceli Mckeon DATE OF SERVICE: 12/05/2019 Followup visit for chronic low back pain, post-laminectomy syndrome, lumbar spondylosis. The patient returns to pain clinic today for renewal of her pain medication. I provided with hydrocodone 10/325, she takes no more than 3 tablets a day. Her morphine milligram equivalency is 30. She has been on these medications now for over 10 years. She has never had any evidence of misuse, abuse or addiction. She has not been hospitalized for overmedication. She is grateful for the use of the medication, which provides her with good pain control and improvement in her day-to-day function. She is a very active woman. She denies any cognitive side effects. Medication review on the [facility] prescription drug monitoring program does point out the use of alprazolam, which Dr. Mendez provides for her for sleep. We have talked about the benzodiazepine and opioid interaction, but she has used these smaller doses safely without harm and I think that she can continue on them. She is following the COVID-19 restrictions carefully. We discussed future travel plans. PHYSICAL EXAMINATION: GENERAL: She is pleasant female. She complains of osteoarthritis of the hips as well as spondylosis of the spine. Her BMI is 25.7, blood pressure 140/79, heart rate 58, respirations 14, pain intensity is 3-4/10 managed well with pain medication. Her functional assessment scores 31/70. She denies falls, blood thinners. Dr. Mendez prescribed medication for hypertension. Her opioid agreement has been reviewed in detail on several visits and we discussed the salient points. She carefully safeguards her medicine. She denies side effects. She has completed an opioid risk tool as do all our patients in their pains. Her risk for addiction is 0 per the score. She denies use of tobacco, enjoys alcohol occasionally in a social setting. [facility] [address] [place] [address] PAIN MANAGEMENT CONSULTATION Name: MAHAMED PALOMARES Joan Room #: REG JASSI Greene#: [id number] Admission: 12/05/19 Attend Phys: Luis Mckeon MD Discharge: Date of : 49 Report #: [id number] IMPRESSION: Chronic intractable pain with spondylosis. Excellent management with modest doses of opioids over a long period of time. PLAN: We will keep with current medication regimen and I will see her at 3-month intervals. Medications were sent electronically to her [facility] pharmacy. She will carefully safeguard her medications. Followup visit planned in 3 months. By: [id number] Luis Mckeon MD /nt
[2019-12-05 11:14] VITALS: BP 140/79
--- NOTE | 2019-12-05 11:17 | NUR ---
Pain Clinic Assessment: 1. History of Osteoarthritis: HIPS History of Rheumatoid Arthritis: Not Applicable 2. Height: 5 ft. 8 in. 172.7 cm. Weight: 169.0 lb. oz. 76.658 kg. Patient's BMI: 25.7 3. Vital Signs: BP: 140/79 Pulse: 58 Resp: 14 Temp: 02 Sat: 100 ECG Mon: 4. Pain Intensity: 3-4 5. Fall Risk: Dizziness: N Needs help standing or walking: N Fallen in the last 3 months: N Fall risk comments: 6. Patient on Blood Thinner: None 7. History of Hypertension: Y 8. Opioid Therapy greater than 6 weeks: Y Opiate Contract Signed: 05/23/16 9. Risk Assessment Tool Provided: low risk - 0 10. Functional Assessment Tool: 11. Recreational Drug Use: Never Drug Type: Tobacco Use: Former Smoker Tobacco Type: Amount or Packs/day: How Many Years: Alcohol Use: Yes Frequency: Quant:
== END ==
LOC: PAIN 06:48
DX: M47.816 Spondylosis without myelopathy or radiculopathy, lumbar region (principal); M54.5 Low back pain; G89.29 Other chronic pain; M96.1 Postlaminectomy syndrome, not elsewhere classified; Z79.891 Long term (current) use of opiate analgesic

== ENCOUNTER → 2020-04-20 | Outpatient (CLI) | payer OTHER, BC ==
[~2020-04-20] VITALS: Ht 172.7 cm; Wt 74.8 kg
[2020-04-20 10:47] VITALS: BP 128/79
--- NOTE | 2020-04-20 10:50 | NUR ---
Pain Clinic Assessment: 1. History of Osteoarthritis: HIPS History of Rheumatoid Arthritis: Not Applicable 2. Height: 5 ft. 8 in. 172.7 cm. Weight: 165.0 lb. oz. 74.844 kg. Patient's BMI: 25.1 3. Vital Signs: BP: 128/79 Pulse: 69 Resp: 14 Temp: 02 Sat: 98 ECG Mon: 4. Pain Intensity: 4-5 5. Fall Risk: Dizziness: N Needs help standing or walking: N Fallen in the last 3 months: N Fall risk comments: 6. Patient on Blood Thinner: None 7. History of Hypertension: Y 8. Opioid Therapy greater than 6 weeks: Y Opiate Contract Signed: 05/23/16 9. Risk Assessment Tool Provided: low risk - 0 10. Functional Assessment Tool: 11. Recreational Drug Use: Never Drug Type: Tobacco Use: Former Smoker Tobacco Type: Amount or Packs/day: How Many Years: Alcohol Use: Yes Frequency: Weekly Quant:
--- NOTE | 2020-04-21 07:56 | HPC ---
[facility] [address] [place] [address] PAIN MANAGEMENT CONSULTATION Name: MAHAMED PALOMARES Room #: REG [facility].#: [id number] Admission: 04/20/20 Attend Phys: Amber Wilson Discharge: Date of : 49 Report #: [id number] CC: Amber Mckeon MD DATE OF SERVICE: 04/20/2020 CHIEF COMPLAINT: Chronic low back pain, post-laminectomy syndrome and lumbar spondylosis. HISTORY OF PRESENT ILLNESS: The patient returns to the pain clinic today for renewal of her opioid medications that she uses to help treat her ongoing back pain. She is reporting her pain score slightly higher today at 4-5, though she has not taken her medications this morning. Her pain usually increases as the day progresses. So therefore, she will take her medicine later this afternoon. Per her report, it is mostly centered in her thoracic region at her bra line and again in her lower lumbar spine that radiates down both of her legs. It is a constant, aching pain. She feels the medication enables her to be as active as she would like and finds it very beneficial with very minimal side effects. She denies constipation or daytime somnolence. ALLERGIES: No known drug allergies. CURRENT LIST OF MEDICATIONS: Hydrocodone 10/325 p.r.n., Synthroid, albuterol, alprazolam, Protonix, Prolia, Diovan, Lipitor, Cymbalta, vitamin D, trazodone, Os-Aris, hydrochlorothiazide. According to the prescription monitoring system, the patient is filling appropriately for her medications in a timely fashion. She is due to fill these medications today. Her morphine mEq is 30 MMEs per day, well below the CDC guidelines, though she does take alprazolam on an as needed basis from her primary care doctor. She has been stable on these medication combinations for quite some time. PHYSICAL EXAMINATION: GENERAL: This is alert and orientated, very pleasant 74-year-old well-developed, well-nourished. She is rating her pain score today at 4-5. HEENT: Normocephalic, atraumatic. Extraocular eye muscles are intact. Mucous membranes are moist. MUSCULOSKELETAL: She has tenderness in the lumbosacral region that radiates down her bilateral legs following the L4-L5 and L5-S1 dermatomal distribution. She has tenderness at her mid thoracic region that is worse with active range of motion. Lower extremity strength judged to be symmetrical at 5/5. IMPRESSION: 1. Chronic intractable pain with spondylosis. 2. Osteoarthritis. 3. Spondylolisthesis. 4. Failed spinal cord stimulator therapy. 5. Post-laminectomy syndrome. 6. Opioid medications under written agreement. We reviewed the fact that opiate medications are being used to provide analgesia adequate to support activities of daily living, not attempting to achieve a specific pain score on the 0-10 Visual Analog Scale. The current opiate medications are providing sufficient analgesia to allow the patient to participate in activities of daily living. The patient is not exhibiting any aberrant behavior suggestive of drug diversion. The patient is not having any adverse reactions to medications. The patient is not suffering from daytime somnolence or mental acuity changes. The patient is managing opiate-induced constipation with appropriate qtws-oiz-eimpirw agents and dietary considerations. The patient was counseled on concern for caution with operating a motor vehicle while using opiate medications. A physical exam was performed and the patient's functional status was evaluated. All patients with back pain were advised against the bed rest greater than 4 days and were advised to return to normal activities. Pain score assessment was noted and the treatment plan was reviewed with the patient. All current medications, both prescribed and OTC were reviewed and reconciled on the electronic medical record. Tobacco screening was accomplished and smoking cessation was advised when indicated. BMI was noted and diet/exercise modification was recommended for all patients following outside normal parameters. I reviewed with the patient today their responsibilities to safeguard prescription medications, reviewed their responsibility to utilize medications only as prescribed by the physician. They are to seek and receive pain medications only from 1 physician group ( [facility]). They are to use 1 pharmacy and keep the clinic informed if they change pharmacies. Their responsibilities include making followup visits in a timely fashion and to avoid abrupt discontinuation of medication usage. Their responsibilities further include bringing their medications (bottles from the pharmacy with residual pills) to the visit for possible confirmation of pill counts and the patient understands it is their responsibility to submit to random drug screens to ensure both that the medications prescribed are present, and that no other controlled substances are present. All prescriptions provided today were generated electronically. PLAN: 1. We discussed treatment options with the patient today. We will have Dr. Luis Mckeon refill her hydrocodone 10/325, #90 for today, 4-week and 8-week release. He will send these electronically. She finds these very beneficial in helping reduce her pain and able to function on a daily basis without difficulty. 2. We did discuss the COVID outbreak. The patient has been staying safe mostly at home, though she does go to the grocery store and out to eat occasionally and she did recently have her flu vaccination. 3. The patient is seen today in collaboration with Dr. Luis Mckeon. The patient will follow up in 3 months. <ELECTRONICALLY SIGNED> By: Amber Wilson 04/21/20 [id number] Amber Wilson /nt
== END ==
LOC: PAIN 06:50
PROVIDERS: ATTEND Clinical Nurse Specialist Adult Health
DX: M47.816 Spondylosis without myelopathy or radiculopathy, lumbar region (principal); G89.29 Other chronic pain; M96.1 Postlaminectomy syndrome, not elsewhere classified; M19.90 Unspecified osteoarthritis, unspecified site; M43.16 Spondylolisthesis, lumbar region; F11.20 Opioid dependence, uncomplicated; Z79.899 Other long term (current) drug therapy

== ENCOUNTER → 2020-08-13 | Outpatient (CLI) | payer OTHER, BC ==
[~2020-08-13] VITALS: Ht 172.7 cm; Wt 76.0 kg
[~2020-08-13] MED LIST changes: +MOBIC7.5 MG PO
[2020-08-13 10:45] VITALS: BP 120/79
--- NOTE | 2020-08-13 11:16 | NUR ---
Pain Clinic Assessment: 1. History of Osteoarthritis: HIPS HANDS History of Rheumatoid Arthritis: Not Applicable 2. Height: 5 ft. 8 in. 172.7 cm. Weight: 167.6 lb. oz. 76.023 kg. Patient's BMI: 25.5 3. Vital Signs: BP: 120/79 Pulse: 71 Resp: 14 Temp: 02 Sat: 99 ECG Mon: 4. Pain Intensity: 2 5. Fall Risk: Dizziness: N Needs help standing or walking: N Fallen in the last 3 months: N Fall risk comments: 6. Patient on Blood Thinner: None 7. History of Hypertension: Y 8. Opioid Therapy greater than 6 weeks: Y Opiate Contract Signed: 05/23/16 9. Risk Assessment Tool Provided: low risk - 0 10. Functional Assessment Tool: 11. Recreational Drug Use: Never Drug Type: Tobacco Use: Former Smoker Tobacco Type: Cigarettes Amount or Packs/day: 2 PPD How Many Years: 6 Alcohol Use: Yes Frequency: Weekly Quant: 1 GLASS WINE
== END ==
LOC: PAIN 06:51
PROVIDERS: ATTEND Anesthesiology Pain Medicine
DX: G89.29 Other chronic pain (principal); M96.1 Postlaminectomy syndrome, not elsewhere classified; M47.816 Spondylosis without myelopathy or radiculopathy, lumbar region

== ENCOUNTER → 2021-01-07 | Outpatient (CLI) | payer OTHER, BC ==
[~2021-01-07] VITALS: Ht 172.7 cm; Wt 0.5 kg
[~2021-01-07] MED LIST changes: +OLMESARTAN MEDOX5 MG PO
[2021-01-07 09:22] VITALS: BP 142/78
--- NOTE | 2021-01-07 09:24 | NUR ---
Pain Clinic Assessment: 1. History of Osteoarthritis: HIPS HANDS History of Rheumatoid Arthritis: Not Applicable 2. Height: 5 ft. 8 in. 172.7 cm. Weight: lb. 16 oz. 0.453 kg. Patient's BMI: 0.2 3. Vital Signs: BP: 142/78 Pulse: 67 Resp: 18 Temp: 02 Sat: 96 ECG Mon: 4. Pain Intensity: 2 5. Fall Risk: Dizziness: N Needs help standing or walking: N Fallen in the last 3 months: N Fall risk comments: 6. Patient on Blood Thinner: None 7. History of Hypertension: Y 8. Opioid Therapy greater than 6 weeks: Y Opiate Contract Signed: 05/23/16 9. Risk Assessment Tool Provided: low risk - 0 10. Functional Assessment Tool: 11. Recreational Drug Use: Never Drug Type: Tobacco Use: Former Smoker Tobacco Type: Amount or Packs/day: How Many Years: Alcohol Use: Yes Frequency: Special Occasions Quant: 1 DRINK
== END ==
LOC: PAIN 06:54
PROVIDERS: ATTEND Clinical Nurse Specialist Adult Health
DX: M47.26 Other spondylosis with radiculopathy, lumbar region (principal); G89.29 Other chronic pain; M96.1 Postlaminectomy syndrome, not elsewhere classified; M19.90 Unspecified osteoarthritis, unspecified site; Z79.891 Long term (current) use of opiate analgesic; Z79.899 Other long term (current) drug therapy; Z87.891 Personal history of nicotine dependence; Z72.89 Other problems related to lifestyle

== ENCOUNTER → 2021-04-29 | Outpatient (CLI) | payer OTHER, BC ==
[~2021-04-29] VITALS: Ht 172.7 cm; Wt 79.0 kg
[2021-04-29 09:56] VITALS: BP 136/82
--- NOTE | 2021-04-29 10:03 | NUR ---
Pain Clinic Assessment: 1. History of Osteoarthritis: HIPS HANDS History of Rheumatoid Arthritis: Not Applicable 2. Height: 5 ft. 8 in. 172.7 cm. Weight: 174.2 lb. oz. 79.017 kg. Patient's BMI: 26.5 3. Vital Signs: BP: 136/82 Pulse: 63 Resp: 16 Temp: 02 Sat: 98 ECG Mon: 4. Pain Intensity: 4 5. Fall Risk: Dizziness: N Needs help standing or walking: N Fallen in the last 3 months: N Fall risk comments: 6. Patient on Blood Thinner: None 7. History of Hypertension: Y 8. Opioid Therapy greater than 6 weeks: Y Opiate Contract Signed: 05/23/16 9. Risk Assessment Tool Provided: Opioid Risk Tool 10. Functional Assessment Tool: 11. Recreational Drug Use: Never Drug Type: Tobacco Use: Former Smoker Tobacco Type: Amount or Packs/day: How Many Years: Alcohol Use: Yes Frequency: Quant:
== END ==
LOC: PAIN 06:56
PROVIDERS: ATTEND Clinical Nurse Specialist Adult Health
DX: G89.29 Other chronic pain (principal); M96.1 Postlaminectomy syndrome, not elsewhere classified; M47.26 Other spondylosis with radiculopathy, lumbar region; M19.90 Unspecified osteoarthritis, unspecified site; Z79.899 Other long term (current) drug therapy